=== PATIENT | male | born 1985 | race Caucasian/White ===

== ENCOUNTER 2017-11-07 19:42 | Observation (INO) | payer OTHER ==
[~2017-11-07] VITALS: Ht 182.9 cm; Wt 135.2 kg
[2017-11-07 19:46] VITALS: Ht 182.9 cm; Wt 135.2 kg
[2017-11-07 20:43] LABS: BASOPHIL % 0.3 % (0-2); PLATELET COUNT 231 x10^3mcL (130-400); RED CELL DISTRIBUTION WIDTH 12.9 % (11.5-14.5)
[2017-11-07 20:58] LABS: CALCIUM 9.2 mg/dL (8.5-10.1); CARBON DIOXIDE 23.9 mmol/L (21-32); CHLORIDE SERUM 98 mmol/L (98-107); CREATININE SERUM 0.6 mg/dL (0.7-1.3); GFR1 > 60 mL/min; GLUCOSE SERUM 309 mg/dL (74-106); POTASSIUM SERUM 3.6 mmol/L (3.5-5.1); SODIUM SERUM 132 mmol/L (136-145)
[2017-11-07 21:03] LABS: microscopic required? YES; urine erythrocyte TRACE (NEGATIVE)
[2017-11-07 21:10] LABS: ALBUMIN 3.9 g/dL (3.4-5.0); ALKALINE PHOSPHATASE 91 U/L (46-116); ALT/SGPT 33 U/L (16-63); AMYLASE 50 U/L (25-115); AST/SGOT 16 U/L (15-37); BILIRUBIN TOTAL 0.42 mg/dL (0.20-1.00); CHOLESTEROL 206 mg/dL (<200); HDL CHOLESTEROL 39 mg/dL (40-60); LIPASE 131 IU/L (73-393); T4(THYROXINE) 7.5 ug/dL (4.7-13.3); TOTAL PROTEIN, SERUM 7.8 g/dL (6.4-8.2)
[2017-11-07 23:29] LABS: AMPHETAMINE QUAL UR NONE DETECTED (See below)
[2017-11-08 00:24] VITALS: BP 134/80
[2017-11-08 05:01] LABS: CHOLESTEROL/HDL RATIO 5.7
[2017-11-08 05:28] VITALS: BP 137/74
[2017-11-08 10:15] VITALS: BP 120/81
[2017-11-08 11:49] VITALS: BP 120/81
[2017-11-08] MEDS ORDERED: METFORMIN HCL1000 MG PO (12:00)
[2017-11-08] MEDS ORDERED: ZESTRIL5 MG PO (12:08)
[2017-11-08] MEDS ORDERED: LIPI10 PO (12:09)
== END 2017-11-08 12:52 | disposition home or self-care (01) | DRG 880 ==
LOC: ED 19:42 → DU 22:49
PROVIDERS: Emergency Medicine; Internal Medicine
DX: F41.1 Generalized anxiety disorder (principal); E87.1 Hypo-osmolality and hyponatremia; F43.0 Acute stress reaction; E11.65 Type 2 diabetes mellitus with hyperglycemia; E78.00 Pure hypercholesterolemia, unspecified; E66.9 Obesity, unspecified; Z91.14 Patient's other noncompliance with medication regimen; Z79.84 Long term (current) use of oral hypoglycemic drugs
CPT/HCPCS: 36600; G0378; J1815; J7030; Q0092

== ENCOUNTER 2020-04-24 22:24 | Emergency (ER) | payer OTHER ==
[~2020-04-24] VITALS: Ht 182.9 cm; Wt 133.8 kg
[~2020-04-24 22:24] MED LIST: LIPI10 PO; METFORMIN HCL1000 MG PO; ZESTRIL5 MG PO
[2020-04-24 22:36] VITALS: Ht 182.9 cm; Wt 133.8 kg
[2020-04-24 23:57] LABS: RED CELL DISTRIBUTION WIDTH 13.4 % (12.1-16.2)
[2020-04-24 23:58] LABS: PLATELET COUNT 238 x10^3mcL (152-348)
[2020-04-24 23:59] LABS: CALCIUM 8.4 mg/dL (8.5-10.1); CARBON DIOXIDE 26.7 mmol/L (21-32); CHLORIDE SERUM 100 mmol/L (98-107); CREATININE SERUM 0.7 mg/dL (0.7-1.3); GFR1 > 60 mL/min; GLUCOSE SERUM 244 mg/dL (74-106); POTASSIUM SERUM 3.8 mmol/L (3.5-5.1); SODIUM SERUM 137 mmol/L (136-145)
[2020-04-25 02:47] VITALS: BP 136/87
== END 2020-04-25 02:47 | disposition home or self-care (01) ==
LOC: ED 22:24
PROVIDERS: Emergency Medicine
DX: R07.89 Other chest pain (principal)
CPT/HCPCS: 85378